=== PATIENT | male | born 1970 | race Two or more races ===

== ENCOUNTER → 2018-03-28 | Outpatient (CLI) | payer BC ==
--- NOTE | 2018-03-28 12:35 | KCIC ---
EXAM: Chest, 2 views. HISTORY: Chest pain. COMPARISON: None. FINDINGS: 2 views of the chest are obtained. There is no infiltrate, pleural effusion or pneumothorax. The heart is normal in size. IMPRESSION: No acute pulmonary finding. Electronically signed by: Sarahi Sidhu MD (03/28/2018 12:30 PM) [place] [id number]
== END | disposition home or self-care (01) ==
LOC: KCIC 09:37
DX: R07.89 Other chest pain (principal)
CPT/HCPCS: 71046